=== PATIENT | female | born 1960 | race Caucasian/White ===

== ENCOUNTER 2019-06-06 19:52 | Emergency (ER) | payer BC ==
[~2019-06-06] VITALS: Ht 167.6 cm; Wt 112.7 kg
[~2019-06-06 19:52] MED LIST: ATEN25TA PO; BUDE10.2 INH; CIPR500T87 PO; CITA40TA5 PO; ERGO500017 PO; FERR325T18 PO; LABE100T6 PO; LANS30TA6 PO; LEVO175T2 PO; LEVO200T PO; LOSA1TAB12 PO; RANI-467 PO; SUMA100T3 PO; TRAZ-137 PO
[2019-06-06 20:08] VITALS: BP 120/73
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
[2019-06-06] MEDS ORDERED: KETOROLAC 30 MG/1 ML ONE (20:43)
[2019-06-06] MEDS ORDERED: DIAZEPAM 5 MG TABLET ONE (20:43)
[2019-06-06] MEDS ORDERED: DIAZEPAM 5 MG TABLET PO ONE (21:00)
[2019-06-06] MEDS ORDERED: KETOROLAC 30 MG/1 ML IM ONE (21:00)
--- NOTE | 2019-06-06 21:03 | NUR ---
medicated per emar
== END 2019-06-06 22:03 | disposition home or self-care (01) ==
LOC: ED 22:01
DX: S29.012A Strain of muscle and tendon of back wall of thorax, initial encounter (principal); J45.909 Unspecified asthma, uncomplicated; J41.1 Mucopurulent chronic bronchitis; I10 Essential (primary) hypertension; F32.9 Major depressive disorder, single episode, unspecified; V49.49XA Driver injured in collision with other motor vehicles in traffic accident, initial encounter; Y93.89 Activity, other specified; Y92.89 Other specified places as the place of occurrence of the external cause; Y99.8 Other external cause status
CPT/HCPCS: 72072; 96372; 99283; J1885